=== PATIENT | male | born 1950 | race Caucasian/White ===

== ENCOUNTER 2016-09-24 06:20 | Observation (INO) | payer BC ==
[2016-09-24] MEDS ORDERED: Morphine INJ* 4 MG/ML 1 ML SYRINGE IV ONE ×2 (06:52→09:50)
[2016-09-24] MEDS ORDERED: fentaNYL* 50 MCG/ML 2 ML VIAL (100 MCG VIAL) IV SLOW PU ONE ×2 (07:23→08:35)
[2016-09-24] MEDS ORDERED: Flumazenil* 0.1 MG/ML 5 ML MDV ONE (07:28)
[2016-09-24] MEDS ORDERED: Naloxone* 0.4 MG/ML 10 ML VIAL ONE (07:28)
[2016-09-24] MEDS ORDERED: fentaNYL* 50 MCG/ML 5 ML VIAL (250 MCG VIAL) ONE (07:28)
[2016-09-24] MEDS ORDERED: Midazolam* 1 MG/ML 10 ML VIAL (10 MG) ONE (07:28)
[2016-09-24] MEDS ORDERED: Midazolam* 1 MG/ML 2 ML VIAL (2 MG) IV ONE (08:35)
[2016-09-24] MEDS ORDERED: NS 0.9% 1000 ML* 1,000 ML IV ONE ×2 (08:35→11:29)
--- NOTE | 2016-09-24 08:44 | RAD ---
Indication: Fall, left ankle injury. 4 views of left ankle demonstrates spiral fracture distal fibula with lateral dislocation of the talus. Rotation is noted. IMPRESSION: Fracture dislocation of the fibula and lateral dislocation of the talus.
--- NOTE | 2016-09-24 08:52 | RAD ---
Indication: Left ankle fracture dislocation, traumatic 2 views of the left ankle demonstrates partial reduction of the laterally dislocated talus. There is still lateral subluxation noted. IMPRESSION: Partial reduction of previously identified talar dislocation.
--- NOTE | 2016-09-24 09:45 | RAD ---
Indication: RIGHT ankle pain following injury. Fracture or dislocation. Comparison: September 24, 2016 radiographs. Technique: Noncontrast CT RIGHT ankle. Multiplanar reformation. 3-D osseous volume rendering. Report: Orellana type B fracture pattern with the distal extent of the distal fibular fracture at the level of the dome of the talus and associated medial malleolus avulsion and fracture of the posterolateral aspect of the tibial plafond. Associated lateral dislocation of the dome of the talus from the dominant portion of the tibial plafond and with the distal lateral malleolus and medial malleolus fracture fragments displaced laterally with the talus. Joint effusion with multiple small intra-articular loose bodies. Tenting of the skin at level of the proximal margin of the medial malleolus without subcutaneous emphysema to confirm open/compound fracture. The tibialis posterior tendon intervenes between the dominant posterior margin of the tibial plafond and the posterior lateral fracture fragment. Normal articular alignment at the subtalar and transverse tarsal joints. 0.9 x 1.0 x 1.5 cm os trigonum noted. IMPRESSION: 1. Orellana type B3 fracture pattern. 2. Associated lateral dislocation of the dome of the talus from the dominant portion of the tibial plafond and with the distal lateral malleolus and medial malleolus fracture fragments displaced laterally with the talus. 3. Small loose bodies. 4. Entrapment of the tibialis posterior tendon within the posterior lateral tibial plafond fracture plane.
[2016-09-24 11:50] LABS: Hematocrit 40 % (42-52); Hemoglobin 13.5 g/dl (14.0-18.0); Mean Corpuscular HGB Conc 34 g/dl (31-36); Mean Corpuscular Hemoglobin 32 pg (27-31); Mean Corpuscular Volume 95 fL (80-94); Mean Platelet Volume 8 um3 (7.4-10.4); Red Blood Count 4.19 10^6/ul (4.0-5.4); Red Cell Distribution Width 12 % (10.5-15); White Blood Count 9.1 10^3/ul (3.5-10.8)
[2016-09-24 12:09] LABS: Albumin 3.6 g/dL (3.2-5.2); BUN/Creatinine Ratio 15.8 (8-20); Calcium 8.3 mg/dL (8.6-10.3); EGFR African American 132.4 (>60); EGFR Non-African American 102.9 (>60); Globulin 2.1 g/dL (2-4); Potassium 3.5 mmol/L (3.5-5.0); Total Protein 5.7 g/dL (6.4-8.9)
[2016-09-24 12:13] LABS: Urine Bilirubin Negative (Negative); Urine Glucose Negative (Negative); Urine Nitrite Negative (Negative)
[2016-09-24] MEDS ORDERED: traMADol TAB* 50 MG PO PRN (12:23)
[2016-09-24] MEDS ORDERED: oxyCODONE/Acetamin 5/325 MG* TAB PO PRN ×2 (12:23→20:42)
[2016-09-24] MEDS ORDERED: Morphine INJ* 10 MG/ML 1 ML SYRINGE IV PRN (12:23)
[2016-09-24] MEDS ORDERED: Ondansetron INJ* 2 MG/ML VIAL IV PRN (12:23)
[2016-09-24] MEDS ORDERED: diPHENhydraMINE IV* 50 MG/ML 1 ml VIAL (BENADRYL) IV PRN (12:23)
[2016-09-24] MEDS ORDERED: Acetaminophen TAB* 325 MG PO PRN (12:23)
[2016-09-24] MEDS ORDERED: Ondansetron TAB* 4 MG PO PRN (12:23)
[2016-09-24] MEDS ORDERED: Morphine INJ* 10 MG/ML 1 ML SYRINGE ONE (13:01)
[2016-09-24] MEDS: D5W 1/2 NS 1000 ML BAG* 1,000 ML IV SCH (14:10)
--- NOTE | 2016-09-24 14:35 | PN ---
Progress Note - Progress Note SOAP: Subjective: H&P dictated earlier today by LANA Mckay. 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 Admitted to [facility] at the time. Presented to ED at 6 am this morning and diagnosed with ankle trimalleolar fracture and tibiotalar dislocation. Closed reduction under conscious sedation left ankle in ED with only partial relocation. Objective: Just arrived to floor. Vitals pending. NAD, comfortable. LLE: - splint intact - CR < 2 sec Assessment: HD1 L ankle trimalleolar fx dislocation Plan: - To OR for ORIF versus Ex-fix today - OR today prior to the development of significant swelling. If much swelling after relocation, would do ex-fix rather than ORIF - NPO - D/w patient benefits, risks, possible complications of surgery - Spoke with Dr. Chin regarding medical clearance. Am awaiting her return call. Per patient, he had a significant cardiac workup in 2016 including stress and nuclear stress tests
--- NOTE | 2016-09-24 14:38 | CONS ---
CONSULTATION REPORT: DATE OF CONSULT: 09/24/16. HISTORY OF PRESENT ILLNESS: The patient is a pleasant 66-year-old gentleman who follows Dr. Kalina grewal for primary care physician, who getting out of bed last night approximately 10 pm, had a sensa tion that he was rolling his ankle. The patient states that he has rolled his ankles (100 times bef ore); however, felt this time has ankle snapped and he fell immediately to the floor with increased pain. He denies any loss of consciousness or any head trauma. He denies any lightheadedness, dizzin ess, or fainting that accompanied this fall. He was able to get back up into bed and thought that gurdeep benz would sleep overnight, and felt better in the morning. He woke this morning with severe ankle matilda n and swelling and called friends to take him to the emergency room. He was seen by Dr. Mckeon where x-rays were taken, which showed initially a spiral fracture on the distal fibula with lateral dislo cation of the talus and rotation. The patient was given sedation and a reduction was attempted, whi ch resulted in a partial reduction the talar dislocation. The patient was splinted with a posterior U splint and recovered from anesthesia well. A CT scan was then obtained of the left lower extremi ty, which showed a Orellana type B3 fracture with associated lateral dislocation of the dome of the rocio us and with lateral malleolus and medial malleolus fractures. The patient denies any prior injuries to his left leg that had required medical attention and denies any prior surgeries to this area. Gurdeep benz denies any other pain throughout the rest of his body from the fall. PAST MEDICAL HISTORY: 1. Hypertension. 2. Elevated cholesterol. 3. History of palpitations, status post catheterization, Holter monitoring, and workup by Dr. Trever foy. PAST SURGICAL HISTORY: Back surgery and possible fusion 1982. MEDICATIONS: 1. Atorvastatin 80 mg p.o. daily. 2. Metoprolol 50 mg p.o. daily. 3. Amlodipine 5 mg p.o. daily. 4. Vitamin B12 supplementation 1000 mcg p.o. daily. 5. ASA 81 mg 1 tablet p.o. daily. 6. Hydrochlorothiazide 25 mg 1 tablet daily. 7. Lisinopril 40 mg 1 tablet p.o. daily. 8. Viagra 50 mg 1 tablet daily p.r.n. 10. Tretinoin 0.05% cream apply topically daily. 11. Ambien 10 mg 1 tablet p.o. q.h.s. p.r.n. SOCIAL HISTORY: No tobacco use. Positive for alcohol use approximately 4 beers per day. Lives [employer]. REVIEW OF SYSTEMS: The patient denies chest pain, lightheadedness, shortness of breath, headache, n ausea, vomiting, constipation, diarrhea, muscle aches or pains in other locations, blood in his urin e, blood in his stool, history of seizure-like activity, blood clots, bleeding disorders, thyroid di sease or diabetes. Review of system is positive for generalized osteoarthritis and currently left f oot pain. PHYSICAL EXAMINATION: General: Resting in bed comfortably, no acute distress. Alert and oriented x 3. Mood and affect appropriate. Heart: Regular rate with intermittent increased beat. No murmurs , gallops or rubs audible. Lungs are clear to auscultation bilaterally. Abdomen: Obese, nontender , nondistended. No organomegaly palpable. Vascular: Posterior tibial pulses on right lower extrem ity 2+ and negative Geremias's sign, right lower extremity, femoral pulses bilaterally 2+, radial pulse s 2+, sensation grossly intact on left toes, right lower extremity, and bilateral upper extremities. Musculoskeletal: No tenderness to palpation or range of motion of bilateral shoulders, bilateral elbows, bilateral wrist, right knee, right ankle, and bilateral hips. Range of motion of left hip l imited due to increased pain with movement to left ankle, left toes with full range of motion with m oderate pain to ankle. The ankle currently splinted, unable to assess. ASSESSMENT: 1. Displaced Orellana type B3 fracture of the left ankle. 2. Hypertension. PLAN: The patient will be discussed with Dr. oMntgomery with regards to possible future OR date. The patient will not admitted for pain control. A phone call was placed to Dr. Chin for preoperativ e clearance. His DVT prophylaxis will be managed with heparin while inpatient. LANA RAMIREZ [id number]/[facility] #: [id number]
[2016-09-24] MEDS ORDERED: Morphine INJ* 2 MG/ML 1 ML SYRINGE ONE (15:16)
[2016-09-24] MEDS ORDERED: Morphine INJ* 2 MG/ML 1 ML SYRINGE IV ONE (16:00)
[2016-09-24] MEDS ORDERED: Morphine INJ* 2 MG/ML 1 ML SYRINGE IV PRN (16:26)
[2016-09-24] MEDS: Metoprolol Succinate XL TAB* 50 MG PO SCH (17:07)
--- NOTE | 2016-09-24 18:21 | ED ---
Gail Isabel Rebecca, scribed for Marc Mckeon MD on 09/24/16 at 0716 . Lower Extremity - HPI Summary HPI Summary: Pt is a 66 y/o M who presents to ED c/o L ankle pain and swelling s/p rolling his ankle. Pt reports he had gotten out of bed and stepped on his shoe, causing the ankle to twist. Incident occurred at 2200 last night, pain began immediately and has been constant since onset. Pain is discrete to the L ankle, is currently severe, ranked 7/10 and characterized as sharp. Sx aggravated by any movement, alleviated by nothing. - History of Current Complaint Chief Complaint: EDExtremityLower Stated Complaint: LEFT ANKLE PAIN Time Seen by Provider: 09/24/16 07:14 Hx Obtained From: Patient Mechanism Of Injury: Twisted Onset of Pain: Immediate, Prior to Arrival Onset/Duration: Hours - 2200 last night Severity Initially: Moderate Severity Currently: Severe Pain Intensity: 7 Pain Scale Used: 0-10 Numeric Timing: Constant Location: Is Discrete @ - L ankle Character Of Pain: Sharp Associated Signs And Symptoms: Positive: Swelling Aggravating Factor(s): Movement Alleviating Factor(s): Nothing - Allergies/Home Medications Allergies/Adverse Reactions: Allergies Allergy/AdvReac Type Severity Reaction Status Date / Time No Known Allergies Allergy Verified 09/24/16 06:23 PMH/Surg Hx/FS Hx/Imm Hx Endocrine/Hematology History: Denies: Hx Diabetes Cardiovascular History: Reports: Hx Hypercholesterolemia, Hx Hypertension - Surgical History Surgery Procedure, Year, and Place: BACK SURGERY (1982) Infectious Disease History: No Infectious Disease History: Denies: Traveled Outside the [place] in Last 30 Days - Family History Known Family History: Negative: Cardiac Disease - Social History Alcohol Use: Daily Alcohol Amount: 3 Substance Use Type: Reports: None Smoking Status (MU): Former Smoker Type: Cigarettes Have You Smoked in the Last Year: No Review of Systems Positive: Arthralgia - L ankle pain s/p twisting Positive: Other - L ankle swelling All Other Systems Reviewed And Are Negative: Yes Physical Exam - Summary Physical Exam Summary: VITAL SIGNS: Reviewed. GENERAL: ~Patient is a well-developed and nourished male who is in acute distress secondary to pain in the L ankle. HEAD AND FACE: No signs of trauma. ~No ecchymosis, hematomas or skull depressions. No sinus tenderness. EYES: PERRLA, EOMI x 2, No injected conjunctiva, no nystagmus. EARS: Hearing grossly intact. Ear canals and tympanic membranes are within normal limits. MOUTH: Oropharynx within normal limits. NECK: Supple, trachea is midline, no adenopathy, no JVD, no carotid bruit, no c- spine tenderness, neck with full ROM. CHEST: Symmetric, no tenderness at palpation LUNGS: Some crackles in the bases of the lungs. CVS: Regular rate and rhythm, S1 and S2 present, no murmurs or gallops appreciated. ABDOMEN: Soft, non-tender. No signs of distention. No rebound no guarding, and no masses palpated. Bowel sounds are normal. EXTREMITIES: No edema, no cyanosis or clubbing. He has L ankle deformity with medial malleolus area blue-gustavo discoloration of the skin. The skin is intact, but there is a lot of blue-gustavo discoloration and it looks like the skin is going to tear. Decreased pulses in the L ankle with good capillary refill and good sensation. NEURO: Alert and oriented x 3. No acute neurological deficits. Speech is normal and follows commands. SKIN: Dry and warm. Triage Information Reviewed: Yes Vital Signs On Initial Exam: Initial Vitals Temp Pulse Resp BP Pulse Ox 98.3 F 92 18 164/82 96 09/24/16 06:23 09/24/16 06:23 09/24/16 06:23 09/24/16 06:23 09/24/16 06:23 Vital Signs Reviewed: Yes - Rafi Coma Scale Coma Scale Total: 15 Procedures - Joint Reduction Joint Reduction Site: ankle (L) Conscious Sedation: Yes Reduction Attempts: 1 Pre-Procedure NV Exam: Yes Post Joint Reduction Film: Partial reduction of previously identified talar dislocation. Diagnostics - Vital Signs Vital Signs Temp Pulse Resp BP Pulse Ox 09/24/16 07:07 75 93 09/24/16 07:05 140/66 09/24/16 07:03 18 09/24/16 06:23 98.3 F 92 18 164/82 96 - Laboratory Lab Results: Lab Results 09/24/16 09/24/16 09/24/16 Range/Units 11:36 11:36 11:47 WBC 9.1 (3.5-10.8) 10^3/ul RBC 4.19 (4.0-5.4) 10^6/ul Hgb 13.5 L (14.0-18.0) g/dl Hct 40 L (42-52) % MCV 95 H (80-94) fL MCH 32 H (27-31) pg MCHC 34 (31-36) g/dl RDW 12 (10.5-15) % Plt Count 184 (150-450) 10^3/ul MPV 8 (7.4-10.4) um3 Neut % (Auto) 75.8 (38-83) % Lymph % (Auto) 14.9 L (25-47) % [place] % (Auto) 8.8 (1-9) % Eos % (Auto) 0.2 (0-6) % Baso % (Auto) 0.3 (0-2) % Absolute Neuts (auto) 6.9 (1.5-7.7) 10^3/ul Absolute Lymphs (auto) 1.3 (1.0-4.8) 10^3/ul Absolute Monos (auto) 0.8 (0-0.8) 10^3/ul Absolute Eos (auto) 0 (0-0.6) 10^3/ul Absolute Basos (auto) 0 (0-0.2) 10^3/ul Absolute Nucleated RBC 0 10^3/ul Nucleated RBC % 0 Sodium 139 (133-145) mmol/L Potassium 3.5 (3.5-5.0) mmol/L Chloride 106 (101-111) mmol/L Carbon Dioxide 27 (22-32) mmol/L Anion Gap 6 (2-11) mmol/L BUN 12 (6-24) mg/dL Creatinine 0.76 (0.67-1.17) mg/dL Est GFR ( Amer) 132.4 (>60) Est GFR (Non-Af Amer) 102.9 (>60) BUN/Creatinine Ratio 15.8 (8-20) Glucose 101 H (70-100) mg/dL Calcium 8.3 L (8.6-10.3) mg/dL Total Bilirubin 1.00 (0.2-1.0) mg/dL AST 16 (13-39) U/L ALT 19 (7-52) U/L Alkaline Phosphatase 35 (34-104) U/L Total Protein 5.7 L (6.4-8.9) g/dL Albumin 3.6 (3.2-5.2) g/dL Globulin 2.1 (2-4) g/dL Albumin/Globulin Ratio 1.7 (1-3) Urine Color Yellow Urine Appearance Clear Urine pH 6.0 (5-9) Ur Specific [place] 1.014 (1.010-1.030) Urine Protein Negative (Negative) Urine Ketones Negative (Negative) Urine Blood Negative (Negative) Urine Nitrate Negative (Negative) Urine Bilirubin Negative (Negative) Urine Urobilinogen Negative (Negative) Ur Leukocyte Esterase Negative (Negative) Urine Glucose Negative (Negative) Result Diagrams: 09/24/16 11:36 09/24/16 11:36 Lab Statement: Any lab studies that have been ordered have been reviewed, and results considered in the medical decision making process. - Radiology Ankle XR Xray Interpretation: Positive (See Comments) - Fracture dislocation of the fibula and lateral dislocation of the talus. Radiology Interpretation Completed By: Radiologist ANKLE XR (post-reduction) Xray Interpretation: Positive (See Comments) - Partial reduction of previously identified talar dislocation. Radiology Interpretation Completed By: Radiologist - CT Lower Extremity CT CT Interpretation: Positive (See Comments) - 1. Orellana type B3 fracture pattern. 2. Associated lateral dislocation of the dome of the talus from the dominant portion of the tibial plafond and with the distal lateral malleolus and medial malleolus fracture fragments displaced laterally with the talus. 3. Small loose bodies. 4. Entrapment of the tibialis posterior tendon within the posterior lateral tibial plafond fracture plane. CT Interpretation Completed By: Radiologist - EKG 1138 Cardiac Rate: NL - 63 bpm EKG Rhythm: Sinus Rhythm EKG Interpretation: No ST elevations EKG Comparison: No Significant Change - Prior to similar EKG on 11/21/2015 Lower Extremity Course/Dx - Course Course Of Treatment: PROCEDURE NOTE: Procedural Sedation. Indications: Ankle fracture. [place] Protocol: a timeout was performed and the correct patient and site were verified. Consent: The risks and benefits of monitored anesthesia care, including the risk of aspiration, deep sedation requiring airway management including possible intubation, nausea and vomiting and the risks of not performing the procedure, including severe pain and inability to complete the procedure, were all discussed with the patient. The alternatives of performing the procedure, including local anesthesia and IV analgesia, also discussed. The patient has a ride home available. ASA Class: I. Pre- anesthesia evaluation, including history, exam, and informed consent is documented in the ED note above. Monitoring: Continuous monitoring of heart rate, respiratory rate, pulse oximetry and ETCO2. Supplemental oxygen prior to and during procedure via nasal cannula. Resuscitation equipment available at the bedside during sedation. The patient received Versed and Fentanyl and dosages were recorded on the sedation form. The patient was recovered from the sedation without complication or incident. Patient returned to pre-sedation level of awareness. The monitoring was discontinued at this time. Post- anesthesia evaluation: Respiratory function, cardiovascular function, temperature, and mental status did return to pre-anesthetic state. Pain is controlled. Assessment/Plan: Pt is a 66 y/o M who presents to ED c/o L ankle pain and swelling s/p rolling his ankle. Pt reports he had gotten out of bed and stepped on his shoe, causing the ankle to twist. Incident occurred at 2200 last night, pain began immediately and has been constant since onset. Pain is discrete to the L ankle, is currently severe, ranked 7/10 and characterized as sharp. Sx aggravated by any movement, alleviated by nothing. Test results within normal limits except a slight decrease in Hgb and Hct. UA is normal. First XR shows fracture dislocation of the fibula and lateral dislocation of the talus. During my initial physical examination I noticed the patient has tenting of the skin in the medial aspect of the medial malleolus and also the patient doesnt have pulses. Therefore, immediately I disclosed my findings with the patient and the need to do conscious sedation to do a quick reduction. I disclosed the case with Dr. Stewart and she agreed. The patient signed the form for consent for conscious sedation and reduction. The patient was given Burset and Fentanyl, obtaining good sedation, and the fracture was reduced. After the reduction, we noticed that the pulses are present and he has excellent capillary refill. The patient also has good feeling. The patient was placed in a temporary splint. The reduction XR shows partial reduction of previously identified talar dislocation. At this point I disclosed my case with Dr. Thao who is covering orthopedics and he requested to do a CT of the ankle. At this point, Dr. Thao requested to admit the patient to his services for further workup and management. The patient was given an additional couple of doses of morphine for the pain. He continues to be hemodynamically stable and AxOx3. - Diagnoses Differential Diagnosis/HQI/PQRI: Positive: Bursitis, Dislocation, Fracture ( Closed), Sprain, Strain Provider Diagnoses: Ankle fracture - Physician Notifications Discussed Care Of Patient With: Jennifer Stewart Time Discussed With Above Provider: 07:23 Instructed by Provider To: Other - Perform joint reduction while under conscious sedation. Discussed care of patient with Dr. Damon Thao at [address] of the ankle and that the patient continues to be NPO. Discussed care of patient with Dr. Damon Thao again at 1024 who stated he will admit the patient. Discharge - Discharge Plan Condition: Stable Disposition: ADMITTED TO [facility] The documentation as recorded by the Gail spaulding Rebecca accurately reflects the service I personally performed and the decisions made by , Marc Mckeon MD.
[2016-09-24] MEDS ORDERED: ceFAZolin 2 GM PREMIX(*) 2 GM/50 ML BAG IVPB ONE (19:07)
[2016-09-24] MEDS ORDERED: fentaNYL* 50 MCG/ML 2 ML VIAL (100 MCG VIAL) ONE ×2 (19:22→19:48)
[2016-09-24] MEDS ORDERED: Midazolam* 1 MG/ML 5 ML VIAL (5 MG) ONE (19:22)
[2016-09-24] MEDS ORDERED: KETAMINE HCL* 50 MG/ML 10 ML VIAL ONE (19:22)
[2016-09-24] MEDS ORDERED: Ketorolac INJ* 30 MG/ML 1 ML VIAL ONE (19:46)
[2016-09-24] MEDS ORDERED: Lidocaine 2% PF * 5 ML VIAL ONE (19:46)
[2016-09-24] MEDS ORDERED: Ondansetron INJ* 2 MG/ML VIAL ONE (19:46)
[2016-09-24] MEDS ORDERED: Propofol* 10 MG/ML 20 ML BTL IV PUSH ONE (19:46)
[2016-09-24] MEDS ORDERED: Dexamethasone IV* 4 MG/ML 1 ML (4 MG) ONE (19:46)
[2016-09-24] MEDS ORDERED: Bupivacaine 0.5% W/EPI SDV* 30 ML VIAL ONE (20:19)
[2016-09-24] MEDS ORDERED: HYDROmorphone* 1 MG/ML 1 ML SYR ONE (20:34)
[2016-09-24] MEDS ORDERED: DiMENhydriNATE IV* 50 MG/ML VIAL IV PUSH PRN (20:42)
[2016-09-24] MEDS ORDERED: HYDROmorphone* 1 MG/ML 1 ML SYR IV PRN (20:42)
[2016-09-24] MEDS ORDERED: Gabapentin CAP(*) 300 MG PO ONE (20:44)
[2016-09-24] MEDS ORDERED: oxyCODONE/Acetamin 5/325 MG* TAB ONE (23:52)
[2016-09-24] MEDS: oxyCODONE/Acetamin 5/325 MG* TAB PO PRN (23:54)
[2016-09-25] MEDS: D5W 1/2 NS 1000 ML BAG* 1,000 ML IV SCH ×2 (00:41→05:38)
[2016-09-25] MEDS ORDERED: Magnesium Hydroxide LIQ* 30 ML UDC PO PRN (01:02)
[2016-09-25] MEDS ORDERED: LORazepam TAB(*) 0.5 MG PO PRN (01:02)
[2016-09-25] MEDS: ceFAZolin VIAL(*) 1 GM in NS 0.9% 50 ML* 50 ML IVPB SCH ×2 (03:50→11:53)
[2016-09-25] MEDS: oxyCODONE/Acetamin 5/325 MG* TAB PO PRN ×2 (05:38→11:52)
[2016-09-25 07:50] VITALS: BP 113/48
--- NOTE | 2016-09-25 08:16 | RAD ---
CPT II Codes: 6045F INDICATION: Dislocated left ankle fracture TECHNIQUE: Intraoperative fluoroscopy was provided during ORIF of a dislocated left ankle fracture.. FINDINGS: 15 spot films depict plate and screw fixation of the fibular malleolus and reduction of the tibial malleolus with 2 medullary pins and a single screw. Final image depicts anatomic alignment of the left ankle.. Fluoroscopy time: 56 seconds IMPRESSION: As above.
[2016-09-25] MEDS: Metoprolol Succinate XL TAB* 50 MG PO SCH (08:42)
[2016-09-25] MEDS ORDERED: Aspirin EC Low Dose* 81 MG TAB.EC PO SCH (09:00)
[2016-09-25] MEDS ORDERED: Hydrochlorothiazide TAB* 25 MG PO SCH (09:00)
[2016-09-25] MEDS ORDERED: Lisinopril TAB* 10 MG PO SCH (09:00)
[2016-09-25] MEDS ORDERED: Aspirin EC TAB* 325 MG PO SCH (09:00)
[2016-09-25] MEDS ORDERED: Metoprolol Succinate XL TAB* 50 MG PO SCH (09:00)
[2016-09-25] MEDS ORDERED: Atorvastatin* 80 MG TAB PO SCH (09:00)
[2016-09-25] MEDS ORDERED: amLODIPine TAB* 5 MG PO SCH (09:00)
--- NOTE | 2016-09-25 09:34 | PN ---
Progress Note - Progress Note SOAP: Subjective: Doing well. Feels comfortable. No significant pain. Objective: LLE - Splint in place - NVID - No pain c PROM toes Selected Entries 09/25/16 07:46 Temperature 97.7 F Pulse Rate 61 Respiratory 14 Rate Blood Pressure 113/48 (mmHg) O2 Sat by Pulse 90 Oximetry Assessment: POD 1 s/p ORIF L ankle trimall fx dislocation Plan: - Discharge home today - PT session prior to discharge - NWB LLE - ASA 325mg po bid for DVT prophylaxis - Percocet prn - Keflex 500mg po tid x 7 days - Discussed LLE elevation for 7 days given the severity of the injury, soft tissue swelling - Discussed at length the importance of NWB. Discussed WB unintentionally during the night or when drinking and how this could lead to catastrophic hardware cutout. I also discussed this last night with the patient's brother and female friend - Followup in clinic in 10-14 days
--- NOTE | 2016-09-25 13:51 | CONS ---
CC: Dr. Jacob Montgomery. MEDICAL CONSULTATION NOTE: DATE OF CONSULT: 09/24/16 REQUESTING PHYSICIAN: Dr. Jacob Montgomery. HISTORY: Darius Atkins is a 66-year-old man who was admitted with an ankle fracture on 09/24/16. He came to the emergency room on 09/24/16 with a history of having rolled his ankle getting out of bed to go to the bathroom at 10 p.m. on 09/23/16. He was found to have a trimalleolar fracture and tibiotalar dislocation. An attempt at reducing the ankle in the ER showed only partial relocation. He was admitted to surgical service. He underwent an ORIF. He tolerated the surgery well. He was then placed on antibiotics. He is anxious to go home today. PAST MEDICAL HISTORY: Significant for the following medical problems: 1. Hypertension. 2. Hyperlipidemia. 3. History of exercise-induced ventricular tachycardia, worked up in 2016. At that time, he underwent cardiac consultation, stress test, cardiac catheterization. He was placed on beta blockers. His cardiac cath revealed normal LV function. He had a 50% to 55% proximal RCA lesion but fractional flow reserve analysis revealed values of 0.96 x2 suggesting a hemodynamically insignificant lesion. It was felt that he did not have ischemic basis for his ventricular tachycardia. The manager of internal, Dr. John recommended risk factor modification and beta-lenard. 4. History of alcohol abuse. 5. Diastolic dysfunction on echocardiogram. 6. Type 2 diabetes mellitus. 7. B12 deficiency. 8. Tobacco abuse. PAST SURGICAL HISTORY: Include thoracic fusion for T7-8 fracture with Eduardo angela. CURRENT MEDICATIONS: 1. Lisinopril 40 mg daily. 2. Potassium chloride extended release 10 mEq 2 capsules every day. 3. Zolpidem 10 mg at h.s. p.r.n. sleep. 4. Viagra 50 mg p.r.n. 5. Metoprolol succinate extended release 25 mg 3 tablets every day, 1 in the morning and 2 at night. 6. Amlodipine 5 mg daily. 7. Atorvastatin 80 mg daily. 8. Tretinoin topical cream at h.s. 9. Hydrochlorothiazide 25 mg every day. 10. Ventolin 2 puffs as needed. 11. Ibuprofen 1 to 2 tablets q.4h. p.r.n. 12. Tylenol 1 to 2 tablets q.4h. p.r.n. 13. B12 1000 mcg daily. 14. Baby aspirin 81 mg daily. ALLERGIES: None. FAMILY HISTORY: Noncontributory. HABITS: Tobacco: Former smoker, he chews tobacco. ETOH: Generally drinks 4 to 5 drinks 6 days out of 7. Caffeine: Generally 1 cup of coffee per day. SOCIAL AND PERSONAL HISTORY: The patient is . He lives by himself. He has an adult daughter who resides out of the area. He has friends and a brother in town. 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 REVIEW OF SYSTEMS: Generally, he had been feeling quite well except he had a recent upper respiratory infection with a cough over the past 5 weeks which was persistent but seemed to be getting better. Appetite is good. Weight has been stable. He denied fevers, chills or sweats. He is generally quite active, walks at least 2 miles every day. He has been doing this for many years. Skin : History of rosacea. HEENT: Negative. Nodes: Negative. Heme: Negative. Endocrine: See above. Respiratory: Recent cough. 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 His cough is improved but has persisted. Cardiovascular: See above. GI: Negative. : Nocturia x1. Musculoskeletal : See above. Neuro: Negative. Psychiatric: Denies depression or anxiety. PHYSICAL EXAMINATION: Vital Signs: Blood pressure 113/48, pulse 61, respirations 16, temperature 97.7, O2 sat 96%. The patient is a well developed obese male, lying in bed, seen with friend Bacilio. Skin is warm and dry. HEENT: Atraumatic, normocephalic, full EOMs. Neck is supple. Chest shows scattered rhonchi. Heart: Normal S1, S2. No murmurs, gallops or rubs. Abdomen is obese , nontender. No masses or organomegaly. Bowel sounds are active. Extremities : Left leg in cast. Right leg with SCD on. Neurologic: There were no gross focal or lateralizing signs. LABORATORY DATA: CBC on September 24, WBC 9.1, H and H 13.5/40, MCV 95, PLT 184K. Chemistry: Sodium 139, potassium 3.5, chloride 106, CO2 27, BUN and creatinine 12/0.76, glucose 101, calcium 8.3, total protein 5.7. Otherwise, comprehensive metabolic panel is within normal limits. Urinalysis is unremarkable. IMAGING: Fluoroscopy of the ankle on September 24 was done during ORIF. Original ankle x-ray showed spiral fracture distal fibula with lateral dislocation of the talus and CT of the ankle showed Orellana type B fracture pattern with the distal extent of the distal fibular fracture at the level of the dome of the talus and associated medial malleolus avulsion and fracture of the posterolateral aspect of the tibial plafond. There was associated lateral dislocation of the dome of the talus from the dominant portion of the tibial plafond, with the distal lateral malleolus and medial malleolus fracture fragments displaced laterally with the talus. Joint effusion with possible small intraarticular loose bodies were seen. Tenting of the skin at the level of the proximal margin of the medial malleolus without subcutaneous emphysema noted. The tibialis posterior tendon intervened between the dominant posterior margin of the tibial plafond and the posterior lateral fracture fragment. Normal articular alignment at the subtalar and transverse joints noted. EKG showed sinus rhythm, PAC. It is otherwise normal. IMPRESSION: I spoke with both Dr. Montgomery and Dr. Lima prior to the surgery yesterday. There were no contraindications to surgery that was planned. He is medically stable. He is being discharged today on Keflex and Percocet for pain. He will be following up with Dr. Montgomery. His next scheduled appointment with me is in October for his routine exam. He will continue on his usual medications for hypertension, hyperlipidemia. He will be on aspirin for DVT prophylaxis. [id number]/[facility] #: [id number] [facility]
--- NOTE | 2016-09-26 04:03 | OP ---
OPERATIVE REPORT: DATE OF OPERATION: 09/24/16 DATE OF : 52 SURGEON: Jacob Montgomery MD MAINTENANCE TEAM MEMBER: LANA So. A physician administrative services assistant was required in this case for positioning, retraction, and other steps. ANESTHESIOLOGIST: Dr. Lima. ANESTHESIA: General anesthesia, local anesthesia. PRE-OP DIAGNOSIS: Left ankle trimalleolar fracture dislocation. POST-OP DIAGNOSES: 1. Left ankle trimalleolar fracture dislocation. 2. Left ankle avulsion fracture, anterolateral tibia at insertion of AITFL ligament. OPERATIVE PROCEDURE: 1. Open reduction internal fixation, left ankle trimalleolar fracture dislocation without posterior fixation. 2. Repair, small avulsion flake fracture of anterolateral left tibia by AITFL ligament. ANTIBIOSIS: 2 g Ancef IV. IV FLUIDS: See anesthesiologist note. SPECIMEN: None. IMPLANTS: Synthes 1/3rd tubular plate with both nonlocking and locking screws. Two threaded 1.6 mm K-wires. FiberWire #5 suture. A 3.5 mm screw with washer. Synthes. TOURNIQUET TIME: 120 minutes at 300 mmHg. EBL: Minimal. 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 The patient states that at approximately 10 p.m. on the evening on 09/23/16, the patient rolled his ankle. The patient was drinking beer and eating pizza at that time. The patient then went to bed, but awoke this morning at 6 a.m. with much pain. A closed reduction under a conscious sedation was attempted in the emergency department. X-rays before and after the relocation attempt demonstrated that the ankle was still dislocated after this procedure. A CT scan was also obtained, which showed a trimalleolar fracture with gross lateral talar shift. The patient was placed in a splint by the ED staff. I met the patient on the floor and the splint was intact. His cap refill was less than 2 seconds and he could wiggle all toes. I spoke to the patient about the risk, benefits and possible complications of surgery. I obtained medical clearance from Dr. Chin, the patient's primary care physician. I discussed with the patient open reduction, internal fixation versus external fixation. DESCRIPTION OF PROCEDURE: Preoperative written consent. Operative extremity was marked in preoperative holding. The patient was consented for an open reduction internal fixation versus an open or closed reduction and external fixation. I told the patient that the procedure would depend on the quality of the soft tissues and whether I thought the patient could tolerate an open reduction internal fixation or whether I thought that it would be required to wait 7 to 10 days to perform this. While preoperative planning, a closed examination of the CT scan made it appear that the medial malleolar fracture fragment at the tip was very small. Depending on the level it was being measured at, I measured it from anywhere from 10 to 18 mm in thickness anterior to posterior, did not believe this would be wide enough to accommodate 4.0 mm screws. Therefore, I started the case anticipating either one screw and one K-wire or two K-wires in a tension band construct. The posterior malleolus fracture appeared proximally 10% of the anterior to posterior articular cartilage surface of the tibia. Therefore, I decided that it would not be necessary to fix that fragment. It was minimally displaced, although the radiologist read that the tibial os posterior was interposed between the posterior malleolus fracture fragment at the tibia. Therefore, minimally displaced would not be the correct term. However, I believe that the posterior malleolus was displaced a low enough amount that I anticipated improved or complete reduction with fixation in the medial and lateral malleolus. Therefore, I started the case anticipating not involving posterior fixation. I anticipated a long lateral malleolus plate given the comminution of the lateral malleolar fracture. The patient was brought to the operating room and placed supine on operating table. General anesthesia was then induced. A left thigh tourniquet was placed , but not yet elevated. The left lower extremity had bone foam placed under it. A blanket bump was placed under the left hemipelvis. I took off the splint and examined the left ankle. It was grossly unstable with regards to bony stability. There was no skin defect. There was no clear impending compromise of the skin. The skin wrinkled both medially and laterally. If note, about the medial ankle near the medial malleolus, there was some bruising and perhaps softening of the skin, in a ~ 4 x 4 cm area. I decided that it was safe to procede with an open reduction internal fixation rather than an external fixation procedure because of the above mentioned skin wrinkling and lack of skin compromise or impending skin compromise. I would not be putting the patient at abnormal risk of skin compromise or wound healing difficulties. The left lower extremity was prepped and draped. Surgical time-out was performed. Esmarch was applied and tourniquet was elevated to 300 mmHg. While planning my approach, I decided to fix the medial side before the lateral side. This is contrary to my normal sequence while fixing bimalleolar fractures. However, I figured that given the significant comminution of the fibula, it would be easier to establish a perfect reduction on the medial side, which would help guide reduction of the lateral side. A medial ankle skin incision, curving anterior distally was made. This was continued through the superficial subcutaneous tissue with a deep 15 blade. I then dissected more deeply with dissection scissors. I visualized the saphenous neurovascular bundle and that was retracted anteriorly. I visualized the medial malleolus fracture site and the bone tip distal to it. I opened the fracture site. Much irrigation of the fracture site was into the ankle joint, which was clearly visible. The fracture site was debrided with a curette and a mini rongeur. Some excess periosteum, minimal along the edges of the fracture were removed with a 15 blade or a mini rongeur. I next reduced the medial malleolus fracture and applied a sharp pronged bone tenaculum clamp across it. I then obtained AP, lateral and mortise images that confirmed adequacy of reduction. With medial malleolus fractures, I relied more on my eyes than on the images and by feel and look of the medial malleolus, this was perfectly reduced. I next placed 2 x 1.6 mm fully threaded K-wires across the fracture site. C-arm confirmed appropriateness of the position and the adequacy of the reduction continued. I next drilled and then placed a 3.5 mm screw, unicortically, transversely, proximally to serve as a post. I screwed that down, just shy of the medial cortex. I next placed a #5 FiberWire about the post proximally and the two K-wires distally. Knot was tied. Screw was advanced into bone. Tightness of the FiberWire suture was confirmed. Ends of the suture were cut. I next shortened the K-wires and bent the tips and impacted them into bone. X-ray confirmed adequacy of reduction and that the ankle was nicely located. It should be mentioned that prior to fixation in the medial side, some manual traction and manipulation was required to fully reduce the ankle. An administrative services assistant held the ankle nicely reduced while I approached the ankle. Because I had some mild concerns about the soft tissue medially, I decided to close the medial side of the ankle before starting my lateral dissection, even though this was not time efficient. I irrigated well the medial incision. I then closed the subcutaneous tissue with buried simple stitches using Vicryl 3- 0 suture. I closed the skin with refugio. The skin closed nicely and easily. Satisfied with my medial reduction and fixation and with that skin incision closed, we next addressed the lateral side of the ankle. Table was airplaned appropriately to improve visualization. A lateral ankle skin incision was made , curving anterior distally. I brought this incision perhaps 13 cm proximal to the distal tip of the lateral malleolus. The skin incision was brought far proximally because of the Orellana C nature of the fracture. Dissection to bone with deep knife followed by scissors. Comminuted fracture encountered. A more distal fracture site was encountered. There was also a thin wafer of bone posterior, more proximally. The distal fracture site, oblique, SER type, was irrigated. Fracture site was debrided with curette and mini rongeur. Some access periosteum was removed. Reduction was obtained with sharp tip bone tenaculums. A lag screw, 3.5 mm was then placed from anterior to posterior. This got reasonable bite and I felt that the reduction was perfect. X-rays showed good position of the screw. I thought that the distal fibula could possibly be short looking at the clear space distal to the distal end of the fibula. However, I visualized the fracture site and the fracture fragments keyed in together perfectly, so there was no location for their to be shortening at. I visualized one other fracture line and that was involving the thin wafer of bone displaced posterior. Therefore, I had not lost length of fibula. I kept the bone clamp across the fracture as well as the lag screw. I next went after the posterior wafer of bone more proximally. I spent some time on this although reduction of it was very difficult and the sliver of bone was too thin to get significant bite across. Therefore, I just let it lay posterior within reasonable distance to bone. There was plenty of thickness anterior to posterior of the remaining fibula anterior to it. I next sized a plate. I contoured it with a lateral flare, the distal most tip turned in and some internal rotation. I applied it to bone. Placed a screw proximal to distal. Then obtained imaging that showed appropriateness of fit proximal to distal, anterior to posterior. I next filled drill holes proximally and distally. I placed 3 non-locking 3.5 mm screws proximally and one locking screw 3.5 mm proximally. Distally, I placed 3 screws, the first nonlocking 4.0 mm cancellous and the second and third 3.5 locking cancellous. I next performed both cotton and external rotation stress test, saving images. Neither increased significantly the medial clear space or the tibiofibular spaces. Therefore, I decided not to place a syndesmotic screw. It should be noted that I discussed possible placement of syndesmotic screw with family and patient preoperatively as well as possible requirement for syndesmotic screw removal surgery in the future. Evaluating my lateral construct, it appeared as though the fracture site had shifted 0.5 mm not even 1 mm, perhaps 1 mm while I was inserting screws in the plate. I noticed this as I inserted these screws, I was watching the fracture reduction. Assessing the lateral construct, it appeared as though the head of the lag screw was slightly abutting the tibia. While this was proximal to the groove and the articulation between tibia and fibula more distally, I wanted to avoid any harm or pain caused by the head of that screw. Therefore, at this point, I removed that lag screw. I had 3 screws distally and 4 proximally and I was comfortable with the stability of my construct without the lag screw. Irrigation. It should be noted that I reached a 120 minutes of tourniquet time while on the lateral side and so dropped the tourniquet, left it dropped for the remainder of the case. I put several deep fascial stitches in using [id number] stitches, Vicryl 2- 0 suture. I then closed the subcutaneous layer with buried simple stitches using Vicryl 3-0 suture. Closure of the skin with refugio. The lateral skin was just a tiniest bit taut, but did close easily and there was no excess tension once the skin had been stapled close. Xeroform on both sides, 4x4s, sterile Webril. Final x-rays had been taken prior to stapling the lateral side. A splint was then applied with a posterior slab and then a sugar tong. Cm bandage. DISPOSITION: The patient was awakened, extubated, and then transferred to the PACU for eventual transfer to the floor. The case ended at 11:30 p.m. at night or there about and the patient lives alone , so the decision was made for the patient to be readmitted postoperatively. Percocet for pain control, aspirin b.i.d. for DVT prophylaxis and Keflex x7 days for infection prophylaxis. The patient was to be seen Dr. Chin the next morning and by me. The patient is nonweightbearing left lower extremity. While telling the patient's female friend and brother about the surgery postoperatively and again while visiting and rounding on the patient on postoperative day 1, I emphasized vehemently the importance of the patient being absolutely nonweightbearing to the left lower extremity. While we obtained a fantastic reduction especially given the high energy nature of this injury and the significant displacement and dislocation preoperatively, I am worried that if he does weight bear that could lead to screw and hardware cutout and possible loss of reduction and fixation. Especially if the patient drinks alcohol, I worry about inadvertent weightbearing. I was very ominous about the possibility of weightbearing leading to a catastrophic loss of reduction with a screw cutout that could lead to a much worse outcome, need for additional surgery and even amputation. The patient and his family and friend seemed to understand. I also told the patient that I wanted him to keep that left lower extremity elevated above the heart for most of the time for the next 1 week that is secondary to the high energy nature of his injury and my concerns about postoperative swelling as well as the slight bruising about the medial ankle that I had visualized before we started the case. I want to make sure he does not have a skin complication. The patient was to be discharged on postoperative day 1 to home after seeing Physical Therapy. The patient will see me 10 to 14 days postoperatively in clinic. [id number]/[facility] #: [id number] NICOLA
--- NOTE | 2016-09-27 11:33 | DS ---
DISCHARGE SUMMARY: DATE OF ADMISSION: 09/24/16 DATE OF DISCHARGE: 09/25/16 ADMITTING PHYSICIAN: Jacob Montgomery MD ADMITTING DIAGNOSES: 1. Left ankle displaced Orellana type B3 fracture. 2. Hypertension. 3. Elevated cholesterol. 4. History of palpitations. DISCHARGE DIAGNOSES: 1. Status post open reduction and internal fixation, left elbow. 2. Hypertension. 3. Elevated cholesterol. 4. History of palpitations. PROCEDURE: Open reduction and internal fixation, left ankle. CONSULTANTS: Physical Therapy. BRIEF HISTORY: Mr. Mccoy is a 66-year-old male who sustained a fracture dislocation to his left an kle on the evening of 09/23/16. Subsequent x-rays showed a spiral fracture of the distal fibula wit h lateral dislocation of the talus and rotation. Reduction was attempted in the emergency room, whi ch resulted in a partial reduction. The patient then underwent open reduction and internal fixation of the left ankle with Dr. Montgomery on 09/24/16. HOSPITAL COURSE: Mr. Atkins was admitted to [facility] on 09/24/16. He underwent an uncomplicated open reduction internal fixation of the left ankle with Dr. Montgomery. Postoperatively, he recovered on the short-stay surgical . (DICTATION ENDS HERE) LANA EDWARD [id number]/[facility] #: [id number]
== END 2016-09-25 12:40 | disposition home or self-care (01) ==
LOC: ED 06:20 → INTOOBSV 12:29 → SSU 12:29
PROVIDERS: ADMIT Orthopaedic Surgery; ATTEND Orthopaedic Surgery
PROC: 0QSJ04Z Reposition Right Fibula with Internal Fixation Device, Open Approach (ICD-10-PCS; principal; 2016-09-24 16:30)
DX: S82.851A Displaced trimalleolar fracture of right lower leg, initial encounter for closed fracture (principal); X58.XXXA Exposure to other specified factors, initial encounter; Y92.003 Bedroom of unspecified non-institutional (private) residence as the place of occurrence of the external cause; I10 Essential (primary) hypertension; E78.00 Pure hypercholesterolemia, unspecified; Z79.899 Other long term (current) drug therapy; Z87.891 Personal history of nicotine dependence; I49.1 Atrial premature depolarization
CPT/HCPCS: 27786; 36415; 76001; 80053; 81003; 85025; 93005; 96374; 96375; 96376; 99285; A9270-GY; G0378; J0690; J1100; J1170; J1885; J2250; J2270; J2310; J2405; J2704; J3010

== ENCOUNTER 2018-12-27 08:25 | Day surgery (SDC) | payer MEDICARE, OTHER ==
[~2018-12-27 08:25] MED LIST: Acetaminophen TAB* 325 MG PO PRN; Buffered Lidocaine 1% SYRIN* 1 ML/SYRINGE INTRADERM ONE
[2018-12-27] MEDS ORDERED: Midazolam* 1 MG/ML 5 ML VIAL (5 MG) ONE (10:30)
[2018-12-27] MEDS ORDERED: Cyclopentolate 1% OPTH.SOL* 2 ML BTL ONE (10:42)
[2018-12-27] MEDS ORDERED: acetaZOLAMIDE TAB* 250 MG ONE (10:42)
[2018-12-27] MEDS ORDERED: Lidocaine 2% w/ EPI 1:200,000* 20 ML SDV VIAL ONE (10:42)
[2018-12-27] MEDS ORDERED: Ketorolac 0.5% OPHTH (NF) 0.5 % 5 ML BTL ONE (10:42)
[2018-12-27] MEDS ORDERED: Povidone Iodine 5% OPTH* 30 ML BTL ONE (10:42)
[2018-12-27] MEDS ORDERED: Lidocaine 1% MPF ** 5 ML VIAL ONE (10:42)
[2018-12-27] MEDS ORDERED: Neomycin/Polymy/Dex OPTH.SUSP* MAXITROL 0.1% 5 ML ONE (10:42)
[2018-12-27] MEDS ORDERED: Phenylephrine OPHTH SOL 2.5%* 2 ML ONE (10:42)
[2018-12-27] MEDS ORDERED: Proparacaine 0.5% OPHTH.SOL* 15 ML BTL ONE (10:43)
[2018-12-27 11:48] VITALS: BP 110/73
--- NOTE | 2018-12-27 14:40 | OP ---
DATE OF OPERATION: 12/27/18 [facility] DATE OF : 52 SURGEON: Carlos Kraft M.D. PREOPERATIVE DIAGNOSIS: Cataract, right eye. POSTOPERATIVE DIAGNOSIS: Cataract, right eye. OPERATIVE PROCEDURE: Extracapsular cataract extraction with intraocular lens implant and CTR, right eye. DESCRIPTION OF PROCEDURE: The patient was brought to the operating room after being given 1/2% Alcaine with epinephrine drops in the preoperative area. The eye was prepped and draped in the usual sterile fashion. Sterile drape and eyelid speculum were placed. Again, topical 1/2% Alcaine with epinephrine was given. A paracentesis incision was made at the 9 o'clock position with the No.75 blade. Clear cornea incision 2.2 x 2.2-mm was created at the 12 o'clock position starting at the anterior limbus using the 2.2-mm keratome. The anterior chamber was irrigated with 0.4 mL of 1% non-preservative intracameral lidocaine and filled with DisCoVisc. A capsulorrhexis was completed using the cystotome and the Utrata forceps. Hydrodissection was performed with balanced salt solution. The lens nucleus was removed with the Phacoemulsification handpiece without incident. Cortex was removed with the irrigation-aspiration handpiece. The capsular bag was re-inflated using DisCoVisc and an [id number] implant was inserted with the shooter and oriented to 178-degree meridian. The pupil was very small. A Malyugin ring was used to dilate the pupil prior to the capsulorrhexis. The artificial lens was followed by a capsular tension ring , a CTR-12. After that was inserted, the Malyugin ring was removed. All measurements were confirmed with ORA. Indication for complex cataract surgery, pupillary abnormalities requiring pupil dilation device and status post vitrectomy surgery requiring capsular tension ring. The irrigation- aspiration handpiece was used to remove all residual DisCoVisc. The eye was refilled with balanced salt solution and the wound checked and found to be watertight. Topical Maxitrol drops were given. [id number]/[facility] #: [id number] MTDD
== END 2018-12-27 11:40 | disposition home or self-care (01) ==
LOC: OREAST 08:25
PROVIDERS: ATTEND Specialist
DX: H25.11 Age-related nuclear cataract, right eye (principal); H21.561 Pupillary abnormality, right eye; H33.8 Other retinal detachments; H53.022 Refractive amblyopia, left eye; I10 Essential (primary) hypertension; Z87.891 Personal history of nicotine dependence; J44.9 Chronic obstructive pulmonary disease, unspecified
CPT/HCPCS: A9270-GY; J2250; V2787